=== PATIENT | female | born 1990 | race American Indian/Alaskan Native ===

== ENCOUNTER 2021-10-28 15:47 | Outpatient (CLI) | payer MEDICAID ==
[2021-10-28 18:06] VITALS: BP 117/75
[2021-10-28 18:55] LABS: Bilirubin,Urine NEG (Negative); Blood,Urine NEG (Negative); Color,Urine Straw (Yellow); Protein,Urine <15 mg/dL mg/dL (Negative); Urobilinogen,Urine < 2.0 mg/dL (<2.0)
[2021-10-28 18:56] LABS: RBC,Urine < 1.0 /HPF (0.0-6.0); WBC,Urine < 1.0 /HPF (0.0-6.0)
== END 2021-10-28 19:34 | disposition home or self-care (01) ==
LOC: TRG 15:47 → LD 15:48 → TRG 19:34
PROVIDERS: ATTEND Obstetrics & Gynecology
DX: O26.892 Other specified pregnancy related conditions, second trimester (principal); Z3A.23 23 weeks gestation of pregnancy
CPT/HCPCS: 81001

== ENCOUNTER 2021-11-28 21:53 | Outpatient (CLI) | payer MEDICAID ==
[2021-11-28] MEDS ORDERED: LACTATED RINGERS 500 ML IV ONE (22:29)
[2021-11-29 00:05] LABS: Bilirubin,Urine NEG (Negative); Blood,Urine NEG (Negative); Color,Urine Yellow (Yellow); Mucus,Urine 3+ /HPF
[2021-11-29 00:27] VITALS: BP 111/61
== END 2021-11-29 00:34 | disposition home or self-care (01) ==
LOC: TRG 21:53 → APU 21:55 → TRG 11-29 00:34
PROVIDERS: ATTEND Student in an Organized Health Care Education/Training Program
DX: O62.9 Abnormality of forces of labor, unspecified (principal); O99.513 Diseases of the respiratory system complicating pregnancy, third trimester; J45.909 Unspecified asthma, uncomplicated; Z3A.28 28 weeks gestation of pregnancy
CPT/HCPCS: 36415; 81001; 82731; 96360; J7120

== ENCOUNTER 2022-01-08 22:45 | Outpatient (CLI) | payer MEDICAID ==
[2022-01-08 23:49] VITALS: BP 118/74
[2022-01-09] MEDS ORDERED: LACTATED RINGERS 1,000 ML IV ONE (00:20)
[2022-01-09 00:30] LABS: Mucus,Urine FEW /HPF
[2022-01-09 00:31] LABS: Bilirubin,Urine Negative (Negative); Blood,Urine Negative (Negative); Color,Urine Yellow (Yellow)
--- NOTE | 2022-01-09 01:35 | Ultrasound Report ---
ULTRASOUND BIOPHYSICAL PROFILE INDICATION / CLINICAL INFORMATION: Well being. COMPARISON: None available. FINDINGS: BREATHING MOVEMENT = 2 GROSS BODY MOVEMENT = 2 TONE = 2 QUALITATIVE AMNIOTIC FLUID VOLUME = 2 TOTAL BIOPHYSICAL SCORE = 02/13 PRESENTATION: Cephalic. HEART RATE (beats per minute): 145 IMPRESSION: 1. biophysical profile = 02/13 Signer Name: Neo Diane MD Signed: 01/09/2022 1:30 AM Workstation Name: [id number]
== END 2022-01-09 02:31 | disposition home or self-care (01) ==
LOC: APU 22:45 → TRG 22:45
PROVIDERS: ATTEND Obstetrics & Gynecology
DX: O62.9 Abnormality of forces of labor, unspecified (principal); O99.513 Diseases of the respiratory system complicating pregnancy, third trimester; J45.909 Unspecified asthma, uncomplicated; O99.613 Diseases of the digestive system complicating pregnancy, third trimester; K21.9 Gastro-esophageal reflux disease without esophagitis; Z3A.34 34 weeks gestation of pregnancy
CPT/HCPCS: 76819; 81001; 96360; J7120

== ENCOUNTER 2022-01-31 17:10 | Inpatient (IN) | payer MEDICAID ==
[2022-01-31] MEDS ORDERED: LIDOCAINE (2%) 20 MG/1 ML VIAL 20 ML MDV INFILTRATI ONE (18:04)
[2022-01-31] MEDS ORDERED: fentaNYL 100 MCG/2 ML INJ IV PRN (18:04)
[2022-01-31] MEDS ORDERED: CARBOPROST TROMETHAMINE 250 MCG/1 ML INJ IM PRN (18:04)
[2022-01-31] MEDS ORDERED: BUTORPHANOL 2 MG/1 ML INJ IV PRN (18:04)
[2022-01-31] MEDS ORDERED: ePHEDrine SULFATE 50 MG/1 ML INJ IV PRN (18:04)
[2022-01-31] MEDS ORDERED: miSOPROStol 200 MCG TAB PR PRN (18:04)
[2022-01-31] MEDS ORDERED: TERBUTALINE 1 MG/1 ML INJ SUB-Q PRN (18:04)
[2022-01-31] MEDS ORDERED: OXYTOCIN 10 UNIT/1 ML INJ IM PRN (18:04)
[2022-01-31] MEDS ORDERED: ACETAMINOPHEN 325 MG TAB PO PRN (18:04)
[2022-01-31] MEDS ORDERED: LOPERAMIDE 2 MG CAP PO PRN (18:04)
[2022-01-31] MEDS ORDERED: METHYLERGONOVINE MALEATE 0.2 MG/ML VIAL IM PRN (18:04)
[2022-01-31] MEDS ORDERED: MINERAL OIL 30 ML ORAL LIQD PO PRN (18:04)
[2022-01-31] MEDS ORDERED: LACTATED RINGERS 1,000 ML IV SCH (18:15)
--- NOTE | 2022-01-31 18:22 | History and Physical Report ---
History of Present Illness Date of examination: 01/31/22 Date of admission: 01/31/2022 Chief complaint: 01/31/2022 History of present illness: Patient is a at 37w2d presenting s/p SROM. Patient notes she has been jono throughout the day and they have progressively instensified. Notes at 4 pm she felt a pop and began leaking fluid. Denies vaginal bleeding. 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 Family/Genetic History: none Social history: no significant social history - Obstetrical History Expected Date of Delivery: 02/19/22 Actual Gestation: 37 Week(s) 2 Day(s) : 5 Para: 3 Hx # Term Pregnancies: 3 Number of Pregnancies: 0 Spontaneous Abortions: 1 Induced : 0 Number of Living Children: 3 Medications and Allergies Allergies Allergy/AdvReac Type Severity Reaction Status Date / Time egg Allergy Mild Unknown Verified 11/28/21 22:13 milk Allergy Mild Unknown Verified 11/28/21 22:13 wheat Allergy Mild Unknown Verified 11/28/21 22:13 Home Medications Medication Instructions Recorded Confirmed Last Taken Type Albuterol Mdi (or & Nicu Only) 2 puff IH QID PRN #1 device 05/23/13 10/13/21 10/12/21 16:00 Rx [ProAir HFA Inhaler] Albuterol Sulfate [Proventil HFA] 2 puff INHALATION 4XD PRN 05/23/13 10/13/21 10/12/21 16:00 History Sertraline HCl [Zoloft] 1 tab PO DAILY 02/02/14 10/13/21 10/12/21 09:00 History ALBUTEROL NEB's [Proventil 0.083% 2.5 mg IH Q4HRT PRN nebu 10/14/21 Unknown Rx NEBS] Enoxaparin 80 mg SUB-Q Q12HR 30 Days syringe 10/14/21 Unknown Rx Famotidine [Pepcid] 10 mg PO BID tablet 10/14/21 Unknown Rx Magnesium Hydroxide [Milk of 30 ml PO Q4H PRN oral.liqd 10/14/21 Unknown Rx Magnesia] Vit-Fe Fumar-FA [ 1 each PO DAILY tablet 10/14/21 Unknown Rx Vitamin] Review of Systems All systems: negative Genitourinary: leakage of fluid, contractions - Physical Exam Abdomen: Positive: soft Genitourinary (Female): Positive: normal external genitalia - Obstetrical FHR: category 1 Cervical Dilatation: 5 Cervical Effacement Percentage: 80 station: -3 Results All other labs normal. 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
[2022-01-31] MEDS ORDERED: fentaNYL 100 MCG/2 ML INJ ONE (18:25)
[2022-01-31] MEDS ORDERED: OXYTOCIN DRIP 30 UNITS/500 ML BAG IV SCH ×2 (19:00)
[2022-01-31 19:12] LABS: Hematocrit 37.4 % (30.3-42.9); Hemoglobin 12.4 gm/dl (10.1-14.3)
--- NOTE | 2022-01-31 19:29 | Procedure Note ---
OB Delivery Note - Delivery Date of Delivery: 01/31/22 Surgeon: ADELAIDA KOCH Estimated blood loss: 100cc - Vaginal Delivery presentation: vertex Delivery position: OA Intrapartum events: prolonged latent phase Delivery induction: none Delivery monitor: external FHT Route of delivery: Delivery placenta: spontaneous Delivery cord: 3 umbilical vessels Episiotomy: none Delivery laceration: none Anesthesia: none Delivery comments: To patient triage room and informed patient complete. With good maternal pushing effort , 2275 g female delivered and handed to awaiting SINDY nurse. Placenta delivered and noted to be intact. Pitocin IM given as patient lost IV access. No lacerations noted. Mother and baby remain in triage room in stable condition. - A at 1 minute: 8 at 5 minutes: 9 Infant Gender: Female (2275g)
--- NOTE | 2022-01-31 19:58 | Event Note ---
Date: 01/31/22 (Elevated blood pressures) Some elevated blood pressures noted immediately after delivery (160's/80-90). Upon entering room, patient had her arm bent and was feeding the baby. She denied DOMINGUEZ, blurred vision, spots before her eyes, chest pain, shortness of breath, and upper abdominal pain. Last few blood pressures noted to be 140's/60's after assessment. Will order Pre-eclampsia labs and continue to monitor blood pressures.
[2022-01-31 20:32] LABS: Uric Acid 5.1 mg/dL (3.5-7.6)
[2022-01-31] MEDS ORDERED: HYDROcodone/ACETAMINOPHEN 5-325 MG TAB PO ONE (23:35)
[2022-02-01] MEDS ORDERED: BENZOCAINE/MENTHOL 20/0.5% TOP SPRAY 56 GM TP PRN (00:05)
[2022-02-01] MEDS ORDERED: WITCH HAZEL/ GLYCERIN PAD TP PRN (00:05)
[2022-02-01] MEDS ORDERED: MAGNESIUM HYDROXIDE (MOM) ORAL LIQD UDC PO PRN (00:05)
[2022-02-01] MEDS ORDERED: LANOLIN/ZINC/DIMETHICONE (LANSINOH) 7 GM TP PRN ×2 (00:05)
[2022-02-01] MEDS ORDERED: ONDANSETRON 4 MG/2 ML INJ IV PRN (00:05)
[2022-02-01] MEDS ORDERED: PROMETHAZINE 25 MG RECT SUPP PR PRN (00:05)
[2022-02-01] MEDS ORDERED: PROMETHAZINE 25 MG TAB PO PRN (00:05)
[2022-02-01] MEDS ORDERED: diphenhydrAMINE 25 MG CAP PO PRN (00:05)
[2022-02-01] MEDS: DOCUSATE SODIUM 100 MG CAP PO SCH ×4 (01:30→22:46)
[2022-02-01] MEDS: oxyCODONE /ACETAMINOPHEN 5-325MG TAB PO PRN ×3 (02:45→15:03)
[2022-02-01] MEDS ORDERED: TETANUS,DIPH,PERTUSS(ACELL) VACCINE 0.5 ML SYRINGE IM ONE (06:00)
--- NOTE | 2022-02-01 09:22 | Progress Note ---
Assessment and Plan - Patient Problems (1) Normal delivery at term Current Visit: Yes Status: Acute Plan to address problem: -routine pp care d/c home in the am (2) Pulmonary embolism affecting in third trimester Current Visit: Yes Status: Acute Plan to address problem: -restart lovenox and con't pp as per recommendations Subjective - Subjective Date of service: 02/01/22 Principal diagnosis: PPD #1 s/p precipitous NDVD Interval history: Pt doing well. pain is well controlled. Breast feeding Patient reports: appetite normal, voiding normally, pain well controlled Mousie: doing well, nursing well Objective - Vital Signs Latest vital signs: Vital Signs Temp Pulse Resp BP BP Pulse Ox 02/01/22 04:00 98.6 F 77 16 114/78 01/31/22 23:20 98.7 F 88 18 127/70 97 01/31/22 22:49 79 17 110/65 110/65 96 01/31/22 22:48 83 99 01/31/22 22:43 71 98 01/31/22 22:38 77 97 01/31/22 22:36 75 121/77 01/31/22 22:33 77 98 01/31/22 22:28 76 97 01/31/22 22:23 63 98 01/31/22 22:22 75 120/71 01/31/22 22:18 78 96 01/31/22 22:13 80 97 01/31/22 22:08 64 98 01/31/22 22:07 60 156/84 01/31/22 22:03 84 98 01/31/22 21:58 59 L 100 01/31/22 21:53 72 97 01/31/22 21:52 60 121/68 01/31/22 21:48 74 99 01/31/22 21:43 62 98 01/31/22 21:38 65 98 01/31/22 21:37 68 158/74 01/31/22 21:33 70 99 01/31/22 21:28 71 99 01/31/22 21:23 73 98 01/31/22 21:21 65 131/72 01/31/22 21:18 68 99 01/31/22 21:13 72 98 01/31/22 21:08 61 127/82 99 01/31/22 21:03 70 99 01/31/22 20:58 65 99 01/31/22 20:53 72 99 01/31/22 20:48 71 100 01/31/22 20:43 80 98 01/31/22 20:38 62 99 01/31/22 20:33 63 98 01/31/22 20:28 67 98 01/31/22 20:23 66 98 01/31/22 20:18 75 98 01/31/22 20:13 71 98 01/31/22 20:08 58 L 99 01/31/22 20:03 59 L 98 01/31/22 19:58 69 99 01/31/22 19:53 63 98 01/31/22 19:51 67 140/63 01/31/22 19:48 68 98 01/31/22 19:43 87 97 01/31/22 19:38 61 97 01/31/22 19:37 57 L 141/68 01/31/22 19:33 77 97 01/31/22 19:28 71 98 01/31/22 19:27 82 94 01/31/22 19:23 69 99 01/31/22 19:21 60 162/90 01/31/22 19:18 66 97 01/31/22 19:13 65 98 01/31/22 19:11 73 93 01/31/22 19:08 69 97 01/31/22 19:07 65 165/85 01/31/22 18:45 20 Intake and Output 01/31/22 02/01/22 02/01/22 22:59 06:59 14:59 Other: # Voids Void 2 Weight 87.09 kg Estimated Blood Loss 200 - Exam Breasts: Present: normal Cardiovascular: Present: Normal S1, Normal S2 Lungs: Present: Clear to auscultation, Normal air movement Abdomen: Present: normal appearance, soft. Absent: distention, tenderness, guarding Uterus: Present: normal, firm. Absent: bogginess, tenderness Extremities: Present: normal Deep Tendon Reflex Grade: Normal +2 - Labs Labs: Abnormal lab results 01/31/22 Range/Units 19:56 Lactate Dehydrogenase 209 H (91-180) units/L
[2022-02-01] MEDS: PRENATAL VIT27-FE FUMARATE-FOLIC ACID VIT TAB PO SCH (10:26)
[2022-02-01] MEDS: ENOXAPARIN 40 MG/0.4 ML INJ SUB-Q SCH (10:29)
[2022-02-01 11:39] LABS: Hematocrit 31.7 % (30.3-42.9); Hemoglobin 10.2 gm/dl (10.1-14.3)
[2022-02-01] MEDS: ACETAMINOPHEN 500 MG TAB PO PRN (18:18)
[2022-02-01] MEDS ORDERED: IBUPROFEN 800 MG TAB PO PRN (21:33)
[2022-02-01] MEDS ORDERED: oxyCODONE 5 MG TAB PO ONE (21:58)
--- NOTE | 2022-02-02 00:39 | Event Note ---
Date: 02/02/22 (Abdominal pain) Pt with severe abdominal pain. she does have a history of a hernia. Per patient she has been passing a little flatus. Also of note, patient states that she was constipated before delivery. Upon assessment, tender abdomen on palpation, mostly on the right side. Distention noted. Hypoactive bowel sounds. Consulted with Dr. Kendall, CT of the abdomen w/o contrast ordered. Dulcolax suppository ordered. RN taking care of patient aware.
[2022-02-02] MEDS: ACETAMINOPHEN 500 MG TAB PO PRN ×3 (01:07→14:21)
--- NOTE | 2022-02-02 01:54 | Cat Scan Report ---
CT ABDOMEN AND PELVIS WITH CONTRAST INDICATION / CLINICAL INFORMATION: Severe abdominal pain after vaginal delivery.. TECHNIQUE: Axial CT images were obtained through the abdomen and pelvis after IV contrast. All CT sc ans at this location are performed using CT dose reduction for ALARA by means of automated exposure c ontrol. COMPARISON: None available. FINDINGS: LOWER CHEST: No significant abnormality of the imaged chest. LIVER: No focal lesion. No acute findings. GALLBLADDER / BILE DUCTS: No significant abnormality. Biliary ducts grossly unremarkable. SPLEEN: No significant abnormality. PANCREAS: No significant abnormality. ADRENALS: No significant abnormality. KIDNEYS/URETERS: Nonobstructing nephrolith left kidney. Otherwise no urolithiasis. STOMACH / DUODENUM / SMALL BOWEL: The stomach, duodenum, and small bowel demonstrate no significant a bnormality. No specific abnormality of the mesentery demonstrated. COLON: No significant abnormality. APPENDIX: No significant abnormality. PERITONEUM: No free air or free fluid are present within the abdomen or pelvis. LYMPH NODES: No significant adenopathy. AORTA / ARTERIES: No significant abnormality. IVC / VEINS: No significant abnormality. URINARY BLADDER: No significant abnormality. REPRODUCTIVE ORGANS: The uterus is enlarged compatible with post-gravid state. The endometrial cavity however demonstrates a moderate to large amount of hyperattenuating fluid compatible with hemorrhage . SKELETAL SYSTEM: No significant abnormality. ADDITIONAL ABDOMINAL/PELVIC FINDINGS: None. IMPRESSION: 1. Large hemorrhage suggested within the endometrial cavity. Signer Name: Mayur Dominguez II, MD Signed: 02/02/2022 1:50 AM Workstation Name: [id number]
[2022-02-02] MEDS ORDERED: GABAPENTIN 300 MG CAP PO ONE (04:51)
[2022-02-02] MEDS ORDERED: TETANUS,DIPH,PERTUSS(ACELL) VACCINE 0.5 ML SYRINGE IM ONE (06:05)
--- NOTE | 2022-02-02 07:02 | Event Note ---
Date: 02/02/22 CT c/w likely immdiate post changes as far as clots being in the uterus. Pt h/h is stable and bleeding has not been c/w hemorrage. Vitals have also been stable and not c/o ongoing hemorhage. Will repeat h/h today and con't to closely monitor.
[2022-02-02 08:41] LABS: Hematocrit 33.2 % (30.3-42.9); Hemoglobin 11.3 gm/dl (10.1-14.3)
--- NOTE | 2022-02-02 09:46 | Progress Note ---
Assessment and Plan - Patient Problems (1) Pulmonary embolism affecting in third trimester Current Visit: Yes Status: Acute Plan to address problem: Patient to continue on Lovenox (2) Abdominal pain Current Visit: Yes Status: Acute Qualifiers: Abdominal location: right lower quadrant Qualified Code(s): R10.31 - Right lower quadrant pain Plan to address problem: s/p CT scan Findings c/w with changes postdelivery with blood noted in the uterus, Will re-evaluate H/H Encouraged to continue ambulation Will order abdominal binder Continue to monitor (3) Normal delivery at term Current Visit: Yes Status: Acute Plan to address problem: Routine care Will restart patient home meds per her request Subjective - Subjective Date of service: 02/02/22 Principal diagnosis: PPD #2 s/p precipitous NDVD Interval history: Patient complains of right sided abdominal pain. Notes it is better with movement and sitting up. Would like to review CT scan findings. Was told by nurse it appears to be changes related to delivery. Patient reports: appetite normal, voiding normally, ambulating normally, other (pain only somewhat controlled) : doing well Objective - Vital Signs Latest vital signs: Vital Signs Temp Pulse Resp BP Pulse Ox Pulse Ox 02/02/22 08:02 98.1 F 88 14 118/82 96 02/02/22 07:55 97 02/02/22 02:07 18 02/02/22 01:58 98.2 F 82 20 116/81 97 02/02/22 01:07 16 02/02/22 01:01 98.2 F 72 20 114/96 97 02/02/22 00:01 99 02/01/22 23:45 18 02/01/22 22:45 16 02/01/22 18:18 16 02/01/22 17:18 98.5 F 72 18 130/77 95 02/01/22 16:03 16 02/01/22 15:03 16 Intake and Output 02/01/22 02/02/22 02/02/22 23:59 07:59 15:59 Intake Total 1080 Balance 1080 Intake: Oral 480 Intake, Free Water 600 Other: Total, Intake Amount 480 # Voids Void 3 - Exam Abdomen: Present: normal appearance, soft, tenderness (tender near herniua site and on right) Vulva: both: normal Uterus: Present: firm Extremities: Present: normal
[2022-02-02] MEDS: DOCUSATE SODIUM 100 MG CAP PO SCH (10:33)
[2022-02-02] MEDS: ENOXAPARIN 40 MG/0.4 ML INJ SUB-Q SCH (10:33)
[2022-02-02] MEDS: PRENATAL VIT27-FE FUMARATE-FOLIC ACID VIT TAB PO SCH (10:33)
[2022-02-02] MEDS: PANTOPRAZOLE 40 MG TAB PO SCH (12:17)
[2022-02-02] MEDS: SERTRALINE 25 MG TAB PO SCH (12:17)
[2022-02-02] MEDS ORDERED: oxyCODONE /ACETAMINOPHEN 5-325MG TAB PO PRN (18:14)
[2022-02-02] MEDS ORDERED: oxyCODONE /ACETAMINOPHEN 5-325MG TAB PO ONE (19:00)
--- NOTE | 2022-02-02 19:05 | Event Note ---
Date: 02/02/22 To patient room for evaluation. Notes pain improved after receiving a Percocet. Minimal vaginal bleeding. Notes Tylenol alone not controlling pain. Discussed with try Tylenol #3 per her request. Orders in system.
[2022-02-03] MEDS: ACETAMINOPHEN W/CODEINE 300-30 MG TAB PO PRN ×3 (00:33→12:51)
[2022-02-03] MEDS: DOCUSATE SODIUM 100 MG CAP PO SCH ×2 (00:33→10:15)
--- NOTE | 2022-02-03 06:07 | Discharge Summary ---
Providers - Providers Date of Admission: 01/31/22 18:04 Date of discharge: 02/03/22 Attending physician: LUISITO VASQUEZ Primary care physician: LUISITO VASQUEZ Hospitalization Reason for admission: active labor Delivery: Episiotomy: none Laceration: none Other procedures: none complications: other (abnormal abdominal pain after delivery.) Pertinent studies: Pt had severe abdominal pain after delivery. Today on discharge she is feeling much better and desires to go home. She had a CT scan which showed normal uterine changes after delivery and no significant abnormalities. Hospital course: S: Pt doing well. Ambulating, voiding, and passing flatus okay. BC: Undecided. O: VSS. H/H 11.3/33.2. Fundus firm, minimal bleeding noted. A: 31 y.o. s/p . In good condition . P: Discharge home with instructions. Pt to schedule visit in the office in 4 weeks. Condition at discharge: Good Disposition: 01 HOME / SELF CARE / HOMELESS Plan - Provider Discharge Summary Activity: routine, no sex for 6 weeks, no heavy lifting 4 weeks, no strenuous exercise Diet: routine Instructions: routine Additional instructions: [] Smoking cessation referral if applicable(refer to patient education folder for contact #) [] Refer to [facility] Booklet Call your doctor immediately for: * Fever > 100.5 * Heavy vaginal bleeding ( >1 pad per hour) * Severe persistent headache * Shortness of breath * Reddened, hot, painful area to leg or breast - Follow up plan Follow up: LUISITO VASQUEZ MD [Primary Care Provider] - 7 Days (- Congratulations on the of your baby girl! - Thank you for allowing us to take care of you. - Please scheduled your visit in the office in 4 weeks. - Should you have any questions or concerns after discharge, please do not hesitate to call us at . )
[2022-02-03] MEDS: PANTOPRAZOLE 40 MG TAB PO SCH (07:47)
[2022-02-03] MEDS: PRENATAL VIT27-FE FUMARATE-FOLIC ACID VIT TAB PO SCH (10:15)
[2022-02-03] MEDS: ENOXAPARIN 40 MG/0.4 ML INJ SUB-Q SCH (10:15)
[2022-02-03] MEDS: SERTRALINE 25 MG TAB PO SCH (11:19)
[2022-02-03 17:09] LABS: Alanine Aminotransferase 27 units/L (7-56); Uric Acid 5.3 mg/dL (3.5-7.6)
--- NOTE | 2022-02-03 20:02 | Event Note ---
Date: 02/03/22 s/w SHAMIKA Moctezuma who stated BP was <140/90, instrd to allow home, informed patient has an appt scheduled 02/07/2022 [place] office at 1430.BP cuff called to the pharmacy in patient's office EMR, she should chk her BP's bid, call office if 140/90 or > or s/s preeclampsia.
[2022-02-03 22:08] VITALS: BP 136/88
== END 2022-02-03 21:30 | disposition home or self-care (01) | DRG 774 ==
LOC: TRG 17:10 → APU 17:11 → TRG 18:25 → OB 23:22
PROVIDERS: ADMIT Obstetrics & Gynecology; ATTEND Obstetrics & Gynecology
PROC: 10E0XZZ Delivery of Products of Conception, External Approach (ICD-10-PCS; principal; 2022-01-31)
PROC: 3E0234Z Introduction of Serum, Toxoid and Vaccine into Muscle, Percutaneous Approach (ICD-10-PCS; 2022-02-02)
DX: O63.9 Long labor, unspecified (principal); O88.22 Thromboembolism in childbirth; Z3A.37 37 weeks gestation of pregnancy; Z37.0 Single live birth; Z20.822 Contact with and (suspected) exposure to COVID-19; Z23 Encounter for immunization
CPT/HCPCS: 36415; 59025; 74150; 76815; 76819; 81001; 82565; 82570; 83615; 84156; 84450; 84460; 84550; 85014; 85018; 85027; 85049; 86592; 86850; 86900; 86901; 90715; 96360; 96372; G0378; J0595; J1650; J2405; J2590; J3010; J3410; J7120; Q0177; U0003

== ENCOUNTER 2022-02-06 18:27 | Inpatient (IN) | payer MEDICAID ==
[2022-02-06 19:28] LABS: Hematocrit 36.4 % (30.3-42.9); Hemoglobin 11.4 gm/dl (10.1-14.3); Mean Corpuscular HGB Conc 32 % (30-34); Mean Corpuscular Volume 90 fl (79-97); Platelet Count 333 K/mm3 (140-440); Red Blood Count 4.04 M/mm3 (3.65-5.03)
[2022-02-06 19:38] LABS: Alanine Aminotransferase 33 units/L (7-56); Albumin 3.9 g/dL (3.9-5); BUN/Creatinine Ratio 14; Blood Urea Nitrogen 11 mg/dL (7-17); Calcium 9.6 mg/dL (8.4-10.2); Hemolysis Index 6
[2022-02-06 19:39] LABS: Red Cell Distribution Width 25.7 % (13.2-15.2)
[2022-02-06 20:20] LABS: Total Cells Counted 100
[2022-02-06 20:21] LABS: Anisocytosis 1+; Basophils % (Manual) 0 % (0.0-1.8); Hypochromasia Rare
[2022-02-07 00:16] LABS: Mucus,Urine 3+ /HPF
[2022-02-07 00:27] LABS: Bilirubin,Urine Negative (Negative); Color,Urine Yellow (Yellow)
[2022-02-07 00:28] LABS: Blood,Urine Trace (Negative); Protein,Urine <15 mg/dL mg/dL (Negative); Urobilinogen,Urine < 2.0 mg/dL (<2.0)
[2022-02-07] MEDS ORDERED: ACETAMINOPHEN 500 MG TAB PO ONE (01:43)
--- NOTE | 2022-02-07 02:49 | Emergency Department Report ---
ED General Adult HPI - General Chief complaint: High BP Stated complaint: HBP X3DAYS Source: patient Mode of arrival: Ambulatory Limitations: No Limitations - History of Present Illness Initial comments: Patient is A0 31-year-old -Slov[place] female who is about 7 days po stpartum presents to the ED with complaint of persistently elevated blood pressure for the last 1 week. Patient states that her blood pressure was elevated prior to being discharged from the hospital but she was discharged home and advised to return to the ED if her blood pressure is persistently elevated. Patient states that prior to arrival in the ED her blood pressure was 171/101. Patient also complains of persistent headache with elevated blood pressure. Patient denies dizziness, syncope, abdominal pain, nausea and vomiting, vaginal discharge, fever and chills, dysuria, urinary frequency and urgency, low back pain, chest pain or shortness of breath. MD Complaint: Elevated BP, patient is 7 days post- -: Sudden, days(s) (7) Location: head Radiation: non-radiation Severity scale (0 -10): 4 Quality: aching, sharp Consistency: constant Improves with: none Worsens with: none Associated Symptoms: denies other symptoms, headaches. denies: chest pain, cough, diaphoresis, fever/chills, loss of appetite, malaise, nausea/vomiting, rash, seizure, shortness of breath, syncope, weakness Treatments Prior to Arrival: none - Related Data Home Medications Medication Instructions Recorded Confirmed Last Taken Albuterol Sulfate [Proventil HFA] 2 puff INHALATION 4XD PRN 05/23/13 10/13/21 10/12/21 16:00 Sertraline HCl [Zoloft] 1 tab PO DAILY 02/02/14 10/13/21 10/12/21 09:00 Previous Rx's Medication Instructions Recorded Last Taken Type Albuterol Mdi (or & Nicu Only) 2 puff IH QID PRN #1 device 05/23/13 10/12/21 16:00 Rx [ProAir HFA Inhaler] ALBUTEROL NEB's [Proventil 0.083% 2.5 mg IH Q4HRT PRN nebu 10/14/21 Unknown Rx NEBS] Enoxaparin 80 mg SUB-Q Q12HR 30 Days syringe 10/14/21 Unknown Rx Famotidine [Pepcid] 10 mg PO BID tablet 10/14/21 Unknown Rx Magnesium Hydroxide [Milk of 30 ml PO Q4H PRN oral.liqd 10/14/21 Unknown Rx Magnesia] Vit-Fe Fumar-FA [ 1 each PO DAILY tablet 10/14/21 Unknown Rx Vitamin] Allergies Allergy/AdvReac Type Severity Reaction Status Date / Time egg Allergy Mild Unknown Verified 11/28/21 22:13 milk Allergy Mild Unknown Verified 11/28/21 22:13 wheat Allergy Mild Unknown Verified 11/28/21 22:13 ED Review of Systems ROS: Stated complaint: HBP X3DAYS Other details as noted in HPI Constitutional: other (Elevated blood pressure). denies: chills, fever Eyes: denies: eye pain, eye discharge, vision change ENT: denies: ear pain, throat pain Respiratory: denies: cough, shortness of breath, wheezing Cardiovascular: denies: chest pain, palpitations Endocrine: no symptoms reported Gastrointestinal: denies: abdominal pain, nausea, vomiting, diarrhea Genitourinary: denies: urgency, dysuria, discharge Musculoskeletal: denies: back pain, joint swelling, arthralgia Skin: denies: rash, lesions Neurological: headache. denies: weakness, paresthesias Psychiatric: denies: anxiety, depression Hematological/Lymphatic: denies: easy bleeding, easy bruising ED Past Medical Hx - Past Medical History Hx Hypertension: No Hx Heart Attack/AMI: No Hx Congestive Heart Failure: No Hx Diabetes: No Hx Deep Vein Thrombosis: No Hx Pulmonary Embolism: Yes (10/12/2021 currently on lovenox) Hx Renal Disease: No Hx Sickle Cell Disease: No Hx Seizures: No Hx Asthma: Yes (when younger, last known when 7) Hx COPD: No Hx HIV: No Additional medical history: anemia recti diastasis - Surgical History Additional Surgical History: Umbilical hernia repair 04/2009 - Social History Smoking Status: Never Smoker - Medications Home Medications: Home Medications Medication Instructions Recorded Confirmed Last Taken Type Albuterol Mdi (or & Nicu Only) 2 puff IH QID PRN #1 device 05/23/13 10/13/21 10/12/21 16:00 Rx [ProAir HFA Inhaler] Albuterol Sulfate [Proventil HFA] 2 puff INHALATION 4XD PRN 05/23/13 10/13/21 10/12/21 16:00 History Sertraline HCl [Zoloft] 1 tab PO DAILY 02/02/14 10/13/21 10/12/21 09:00 History ALBUTEROL NEB's [Proventil 0.083% 2.5 mg IH Q4HRT PRN nebu 10/14/21 Unknown Rx NEBS] Enoxaparin 80 mg SUB-Q Q12HR 30 Days syringe 10/14/21 Unknown Rx Famotidine [Pepcid] 10 mg PO BID tablet 10/14/21 Unknown Rx Magnesium Hydroxide [Milk of 30 ml PO Q4H PRN oral.liqd 10/14/21 Unknown Rx Magnesia] Vit-Fe Fumar-FA [ 1 each PO DAILY tablet 10/14/21 Unknown Rx Vitamin] ED Physical Exam - General Limitations: No Limitations General appearance: alert, in no apparent distress - Head Head exam: Present: atraumatic, normocephalic, normal inspection - Eye Eye exam: Present: normal appearance, PERRL, EOMI Pupils: Present: normal accommodation - ENT ENT exam: Present: normal exam, normal orophraynx, mucous membranes moist, TM's normal bilaterally, normal external ear exam - Neck Neck exam: Present: normal inspection, full ROM. Absent: tenderness - Respiratory Respiratory exam: Present: normal lung sounds bilaterally. Absent: respiratory distress, wheezes, rales, rhonchi, chest wall tenderness, accessory muscle use, decreased breath sounds, prolonged expiratory - Cardiovascular Cardiovascular Exam: Present: regular rate, normal rhythm, normal heart sounds. Absent: systolic murmur, diastolic murmur, rubs, gallop - GI/Abdominal GI/Abdominal exam: Present: soft, normal bowel sounds. Absent: tenderness, guarding, rebound, hyperactive bowel sounds, hypoactive bowel sounds, organomegaly, mass, bruit - Extremities Exam Extremities exam: Present: normal inspection, full ROM, normal capillary refill. Absent: tenderness - Back Exam Back exam: Present: normal inspection, full ROM. Absent: tenderness, CVA tenderness (R), CVA tenderness (L), muscle spasm, paraspinal tenderness, vertebral tenderness - Neurological Exam Neurological exam: Present: alert, oriented X3, CN II-XII intact, normal gait, reflexes normal - Psychiatric Psychiatric exam: Present: normal affect, normal mood - Skin Skin exam: Present: warm, dry, intact, normal color. Absent: rash ED Course Vital Signs 02/06/22 02/07/22 02/07/22 18:44 00:09 02:36 Temperature 97.9 F Pulse Rate 81 76 72 Respiratory 15 18 Rate Blood Pressure 158/84 Blood Pressure 150/97 152/84 [Right] O2 Sat by Pulse 97 99 Oximetry - Reevaluation(s) Reevaluation #1: 02/07/22 02:51 I paged and discussed the patient's case with the midlevel provider Ms. Wright for Dr. Kendall the patient's [employer] physician. The midlevel provider Ms. Wright stated that Dr. Kendall preferred to admit the patient to the hospital for observation and for magnesium infusion. Subsequently the patient was therefore admitted to the hospital by Dr. Kendall for further evaluation. ED Medical Decision Making - Lab Data Result diagrams: 02/06/22 19:04 02/06/22 19:04 - Medical Decision Making This is A0 31-year-old -Slov[place] female who is about 7 days presents to the ED with complaint of persistently elevated blood pressure for the last 1 week. Patient states that her blood pressure was elevated prior to being discharged from the hospital but she was discharged home and advised to return to the ED if her blood pressure is persistently elevated. Patient states that prior to arrival in the ED her blood pressure was 171/101. Patient also complains of persistent headache with elevated blood pressure. In the ED, patient is alert and oriented x3 and is not in distress but hypertensive in triage. Lab test results were reviewed and are all nonactionable. Patient was treated for hypertension with labetalol 100 mg p.o. x1 and was given Tylenol for pain. Patient's [employer] physician Dr. Kendall the patient's [employer] physician was paged and she admitted the patient to the hospital for further evaluation. - Differential Diagnosis Preeclampsia; eclampsia; tension headache; uncontrolled hypertension Critical care attestation.: If time is entered above; I have spent that time in minutes in the direct care of this critically ill patient, excluding procedure time. ED Disposition Clinical Impression: Preeclampsia in period, Uncontrolled stage 2 hypertension Tension type headache Qualifiers: Headache chronicity pattern: acute headache Intractability: not intractable Qualified Code(s): G44.209 - Tension-type headache, unspecified, not intractable Disposition: 02 SHORT TERM HOSPITAL Is pt being admited?: Yes Does the pt Need Aspirin: No Condition: Stable Instructions: Hypertension (ED) Referrals: KAYLA RICO MD [Primary Care Provider] - 3-5 Days Time of Disposition: 02:50 Print Language: BRAZILIAN
[2022-02-07] MEDS ORDERED: ONDANSETRON 4 MG/2 ML INJ IV PRN (02:54)
[2022-02-07] MEDS ORDERED: ACETAMINOPHEN 325 MG TAB PO PRN (02:54)
[2022-02-07] MEDS ORDERED: MORPHINE 2 MG/1 ML INJ IV PRN (02:54)
[2022-02-07] MEDS ORDERED: MAGNESIUM SULFATE 4 GM/100 ML BAG IV ONE ×2 (03:24→09:13)
[2022-02-07] MEDS ORDERED: CALCIUM GLUCONATE 1000 MG/10 ML INJ IV ONE (03:24)
[2022-02-07] MEDS ORDERED: MAGNESIUM HYDROXIDE (MOM) ORAL LIQD UDC PO PRN (03:31)
[2022-02-07] MEDS ORDERED: ALUM-MAG HYDROXIDE-SIMETHICONE 200-200-20MG/5ML ORAL LIQD 30 ML PO PRN (03:31)
[2022-02-07] MEDS ORDERED: SIMETHICONE 80 MG CHEW TAB PO PRN (03:31)
[2022-02-07] MEDS ORDERED: DOCUSATE SODIUM 100 MG CAP PO PRN (03:31)
--- NOTE | 2022-02-07 04:01 | History and Physical Report ---
History of Present Illness Date of examination: 02/07/22 Date of admission: 02/07/22 03:24 Chief complaint: My blood pressures were high at home and I have a dull headache. History of present illness: Pt is a who delivered vaginal 7 days ago. She presented to the ER d/t elevated blood pressures at home and a dull headache. Her blood pressures in the ER were found to be 150's/80-90's. She will be admitted to labor and delivery for magnesium infusion, blood pressure medication, and monitoring for worsening s/sx of Pre-eclampsia. Also of note, patient was diagnosed with a PE during and has been on Lovenox. Past History : 5 Term Births: 4 Premature Births: 0 Living Children: 4 Para: 4 Mult. Births: 0 Prev : 0 Aborta: 1 Elect. Ab: 0 Spont. Ab: 1 Ectopics: 0 # 1 Delivery date: 01/2007 Weeks Gestation: term Delivery type: Anesthesia type: epidural Delivery location: [facility] Infant Sex: Male weight: 6-1 Comments: IOL # 2 Delivery date: 01/2009 Weeks Gestation: term Delivery type: Anesthesia type: epidural Delivery location: [facility] Infant Sex: Female weight: 6-15 Comments: IOL # 3 Delivery date: 05/23/2014 Weeks Gestation: 40 Delivery type: Vaginal Anesthesia type: epidural Delivery location: [facility] Infant Sex: male weight: 7.81 Comments: none # 4 Delivery date: 2019 Weeks Gestation: Early? Delivery type: SAB Comments: No complications # 5 Delivery date: 2021 Week Gestation: 37+ Delivery type: Comments: Diagnosed with PE and on Lovenox during preg arpit Past Medical History: Reviewed history from 11/28/2019 and no changes required: Asthma G E R D HSV 1 Past Surgical History: Reviewed and updated today: Surgical removal of IUD in 2019. Social History: Patient is Smoking History: Patient has never smoked. 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 % Sun Exposure: rarely No Dietary Counseling Reason: pn yes Past Medical History Anesthesia Complications: negative Anemia: negative Autoimmune Disorder: negative Bleeding Disorder: negative Blood Transfusions: negative Breast Disease: negative Diabetes: negative Heart Disease: negative Hypertension: negative Hepatitis/Liver Disease: negative Kidney Disease/UTI: negative Neurologic/Epilepsy/Migraines: negative Phlebitis/Varicosities: negative Psychiatric: negative Pulmonary Disease/Asthma: negative Thyroid Disease: negative Hospitalizations: negative 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 Abnormal PAP: negative JU Exposure: negative Infertility: negative Uterine Anomaly: negative Uterine Surgery (not C/S): negative Other Gynecologic Problems: negative Social Hx: Patient is Smoking History: Patient has never smoked. Infection History Hx of STD: gonorrhea HIV Risk Eval: no Hepatitis B Risk Eval: low risk Personal hx. of genital herpes: no Partner hx. of genital herpes: no Rash, Viral, or Febrile illness since last LMP? no Varicella/Chicken Pox Status: Previous Disease TB Risk: no Infection History Comments: HSV 1 Genetic History Congenital Heart Defect: Mom: no Dad: no Humberto Disease: Mom: no Dad: no Thalassemia Mom: no Dad: no Neural Tube Defect Mom: no Dad: no Down's Syndrome Mom: no Dad: no Eduardo-Sachs Mom: no Dad: no Sickle Cell Disease/Trait Mom: no Dad: no Hemophilia Mom: no Dad: no Muscular Dystrophy Mom: no Dad: no Cystic Fibrosis Mom: no Dad: no Mateo Chorea Mom: no Dad: no Mental Retardation Mom: no Dad: no Fragile X Mom: no Dad: no Other Genetic/Chromosomal Disorder Mom: no Dad: no Child w/other defect Mom: no Dad: no Enviromental Exposures Xray Exposure: no Medication, drug, or alcohol use since LMP: no Chemical/Other Exposure: no Exposure to Cat Liter: yes Occupational Exposure to Children: none Active Medications (reviewed today): PNV () ZYRTEC () Current Allergies (reviewed today): No known allergies Laboratory Results Past History Past Medical History: asthma, vascular disease (PE), GERD Past Surgical History: other (Surgical removal of IUD in 2019.) 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) Family/Genetic History: none Social history: no significant social history - Obstetrical History : 5 Para: 4 Hx # Term Pregnancies: 4 Number of Pregnancies: 0 Spontaneous Abortions: 1 Induced : 0 Number of Living Children: 4 Medications and Allergies Allergies Allergy/AdvReac Type Severity Reaction Status Date / Time egg Allergy Mild Unknown Verified 11/28/21 22:13 milk Allergy Mild Unknown Verified 11/28/21 22:13 wheat Allergy Mild Unknown Verified 11/28/21 22:13 Home Medications Medication Instructions Recorded Confirmed Last Taken Type Albuterol Mdi (or & Nicu Only) 2 puff IH QID PRN #1 device 05/23/13 10/13/21 10/12/21 16:00 Rx [ProAir HFA Inhaler] Albuterol Sulfate [Proventil HFA] 2 puff INHALATION 4XD PRN 05/23/13 10/13/21 10/12/21 16:00 History Sertraline HCl [Zoloft] 1 tab PO DAILY 02/02/14 10/13/21 10/12/21 09:00 History ALBUTEROL NEB's [Proventil 0.083% 2.5 mg IH Q4HRT PRN nebu 10/14/21 Unknown Rx NEBS] Enoxaparin 80 mg SUB-Q Q12HR 30 Days syringe 10/14/21 Unknown Rx Famotidine [Pepcid] 10 mg PO BID tablet 10/14/21 Unknown Rx Magnesium Hydroxide [Milk of 30 ml PO Q4H PRN oral.liqd 10/14/21 Unknown Rx Magnesia] Vit-Fe Fumar-FA [ 1 each PO DAILY tablet 10/14/21 Unknown Rx Vitamin] Active Meds: Active Medications Acetaminophen (Acetaminophen 500 Mg Tab) 1,000 mg PO Q6H PRN PRN Reason: Pain MILD(1-3)/Fever >100.5/DOMINGUEZ Al Hydrox/Mg Hydrox/Simethicone (Alum-Mag Hydroxide-Simethicone [phone]/5ml Oral Liqd 30 Ml) 30 ml PO Q6H PRN PRN Reason: Indigestion Docusate Sodium (Docusate Sodium 100 Mg Cap) 100 mg PO Q12H PRN PRN Reason: Constipation Enoxaparin Sodium (Enoxaparin 80 Mg/0.8 Ml Inj) 40 mg SUB-Q QDAY KAYLEE; Protocol Lactated Ringer's (Lactated Ringers) 1,000 mls @ 75 mls/hr IV DIRECT KAYLEE Magnesium Sulfate (Magnesium Sulfate 40gm/1000ml) 40 gm in 1,000 mls @ 50 mls/hr IV DIRECT KAYLEE Labetalol HCl (Labetalol 200 Mg Tab) 200 mg PO BID [facility] Magnesium Hydroxide (Magnesium Hydroxide (Mom) Oral Liqd Udc) 30 ml PO QHS PRN PRN Reason: Laxative Effect Morphine Sulfate (Morphine 2 Mg/1 Ml Inj) 2 mg IV Q4H PRN PRN Reason: Pain, Moderate (4-6) Multivitamins/Iron/Calcium ( [id number]-Aq Fumarate-Folic Acid Vit Tab) 1 each PO QDAY [facility] Ondansetron HCl (Ondansetron 4 Mg/2 Ml Inj) 4 mg IV Q8H PRN PRN Reason: Nausea And Vomiting Simethicone (Simethicone 80 Mg Chew Tab) 80 mg PO Q6H PRN PRN Reason: Gas pain Sodium Chloride (Sodium Chloride 0.9% 10 Ml Flush Syringe) 10 ml IV PRN PRN PRN Reason: LINE FLUSH Review of Systems All systems: negative Neurological: headaches - Vital Signs Vital signs: Vital Signs Temp Pulse Resp BP Pulse Ox 97.9 F 81 15 150/97 97 02/06/22 18:44 02/06/22 18:44 02/06/22 18:44 02/06/22 18:44 02/06/22 18:44 Temp Pulse Resp BP Pulse Ox 97.9 F 72 18 158/84 99 02/06/22 18:44 02/07/22 02:36 02/07/22 00:09 02/07/22 02:36 02/07/22 00:09 Pt denies blurred vision, spots before her eyes, chest pain, upper abdominal pain. She endorses a dull headache. - Physical Exam Breasts: Positive: deferred Cardiovascular: Normal S1, Normal S2 Lungs: Positive: Clear to auscultation Abdomen: Positive: normal appearance, soft Extremities: Positive: edema (+1 edema) Deep Tendon Reflex Grade: Normal +2 Results Result Diagrams: 02/06/22 19:04 02/06/22 19:04 Abnormal lab results 02/06/22 Range/Units 19:04 RDW 25.7 H (13.2-15.2) % Seg Neuts % (Manual) 71.0 H (40.0-70.0) % All other labs normal. Pre-eclampsia labs drawn on admission. Assessment and Plan A: 31 y.o. s/o , day # 7, Pre-eclampsia. Hx of PE. - Patient Problems (1) Preeclampsia in period Current Visit: Yes Status: Acute Plan to address problem: Admit to labor and delivery. Pre-eclampsia labs drawn in ED. IV initiate in ED. Magnesium infusion - 4 gm bolus - 2 gm/hr Magnesium levels q 6 hrs. Strict I&O's - Burnett catheter placement Labetalol 200mg BID started. Monitor blood pressures. Monitor for worsening s/sx of pre-eclampsia. (2) History of pulmonary embolus (PE) Current Visit: Yes Status: Acute Plan to address problem: Lovenox ordered while admitted.
[2022-02-07] MEDS: LACTATED RINGERS 1,000 ML IV SCH ×2 (10:55→22:05)
[2022-02-07] MEDS: MAGNESIUM SULFATE 40GM/1000ML 40 GM/1,000 ML BAG IV SCH (10:56)
[2022-02-07] MEDS: SERTRALINE 25 MG TAB PO SCH (16:19)
[2022-02-07] MEDS: PANTOPRAZOLE 20 MG TAB PO SCH (16:19)
[2022-02-07] MEDS: ACETAMINOPHEN 500 MG TAB PO PRN (18:13)
[2022-02-07] MEDS: ENOXAPARIN 40 MG/0.4 ML INJ SUB-Q SCH (19:08)
--- NOTE | 2022-02-07 20:31 | Event Note ---
Date: 02/07/22 Pt w/o complaints; reviewed b/p's - well controlled on labetalol 200mg PO BID. Plan to continue mag sulfate x 24hrs, then d/c and continue with labetalol.
[2022-02-08] MEDS: ACETAMINOPHEN 500 MG TAB PO PRN ×3 (00:18→21:55)
[2022-02-08] MEDS ORDERED: IBUPROFEN 800 MG TAB PO PRN (01:34)
[2022-02-08] MEDS ORDERED: BUTALB/ACETAMINOPHEN/CAFFEINE TAB PO ONE (04:37)
[2022-02-08] MEDS: MAGNESIUM SULFATE 40GM/1000ML 40 GM/1,000 ML BAG IV SCH (07:00)
[2022-02-08] MEDS: PANTOPRAZOLE 20 MG TAB PO SCH (07:52)
--- NOTE | 2022-02-08 08:04 | Progress Note ---
<LUZ VASQUEZ - Last Filed: 02/08/22 08:00> Assessment and Plan A: 31 y.o. s/o , day #8 , Pre-eclampsia. Hx of PE. - Patient Problems (1) Preeclampsia in period Current Visit: Yes Status: Acute Plan to address problem: Magnesium infusion - 2 gm/hr d/t be turned off at 1050pm. Magnesium levels q 6 hrs. Strict I&O's - Burnett catheter placement Labetalol 200mg BID started. Monitor blood pressures. Monitor for worsening s/sx of pre-eclampsia. (2) History of pulmonary embolus (PE) Current Visit: Yes Status: Acute Plan to address problem: Lovenox ordered while admitted. Subjective - Subjective Date of service: 02/08/22 Interval history: Pt resting in bed, denies difficulty breathing or chest pain. Reports H/A, states may be due to caffeine in fioricet will order new med for H/A. BP controlled with labetalol 200mg BID. Patient reports: appetite normal, voiding normally : doing well Objective - Vital Signs Latest vital signs: Vital Signs Temp Pulse Resp BP Pulse Ox 02/08/22 07:30 80 142/82 02/08/22 07:00 82 134/84 02/08/22 06:00 86 118/70 02/08/22 04:54 98.2 F 18 97 02/08/22 04:27 94 H 128/82 02/08/22 03:21 84 136/78 02/08/22 02:51 78 123/74 02/08/22 02:21 80 127/77 02/08/22 01:51 76 113/60 02/08/22 01:19 71 144/90 02/08/22 01:18 98.1 F 18 97 02/08/22 01:09 76 156/100 02/08/22 00:38 68 133/87 02/08/22 00:07 71 111/69 02/07/22 23:18 82 114/81 02/07/22 22:07 98.2 F 18 100 02/07/22 22:03 88 122/75 02/07/22 21:48 88 122/75 02/07/22 21:18 85 123/69 02/07/22 20:48 86 110/64 02/07/22 20:18 77 98/58 02/07/22 19:48 71 99/63 02/07/22 19:19 88 110/69 02/07/22 19:03 94 H 100/58 02/07/22 19:00 97.5 F L 18 100 02/07/22 17:49 93 H 118/72 02/07/22 17:18 100 H 119/81 02/07/22 16:48 92 H 115/81 02/07/22 16:18 81 120/74 02/07/22 15:48 74 139/71 02/07/22 15:18 86 132/66 02/07/22 14:48 74 105/66 02/07/22 14:18 63 101/66 02/07/22 13:48 66 123/70 02/07/22 13:18 82 128/76 02/07/22 12:18 64 122/82 02/07/22 12:03 73 120/75 02/07/22 11:48 74 124/80 02/07/22 11:33 63 118/62 02/07/22 11:19 65 122/81 02/07/22 11:03 62 123/79 02/07/22 10:59 65 118/74 02/07/22 09:29 80 130/77 Intake and Output 02/07/22 02/08/22 02/08/22 22:59 06:59 14:59 Intake Total 1137.5 1000 Output Total 1600 900 Balance -462.5 100 Intake: IV 837.5 1000 Lactated Ringers 1,000 ml 837.5 @ 75 mls/hr IV DIRECT KAYLEE Rx#:[id number] MAGNESIUM SULFATE 40GM/ 1000 1000ML 40 gm In 1,000 ml @ 2 GM/HR 50 mls/hr IV DIRECT KAYLEE Rx#:[id number] Oral 300 Output: Urine 1600 900 Indwelling Catheter 1600 900 Other: Total, Intake Amount 300 Total, Output Amount 150 250 - Exam Breasts: Present: normal Lungs: Present: Clear to auscultation, Normal air movement Abdomen: Present: normal appearance, soft Uterus: Present: normal Extremities: Present: normal Deep Tendon Reflex Grade: Normal +2 - Labs Labs: Abnormal lab results 02/07/22 02/08/22 02/08/22 Range/Units 18:18 00:21 05:59 Magnesium 6.10 H 6.70 H 7.00 H (1.7-2.3) mg/dL <RISA WILLOUGHBY - Last Filed: 02/08/22 17:39> Assessment and Plan - Patient Problems (1) Tension type headache Current Visit: Yes Status: Acute Qualifiers: Headache chronicity pattern: acute headache Intractability: not intractable Qualified Code(s): G44.209 - Tension-type headache, unspecified, not intractable Plan to address problem: Pitocin to end 158 AM Objective - Vital Signs Latest vital signs: Vital Signs Temp Pulse Resp BP BP Pulse Ox 02/08/22 17:38 98.3 F 02/08/22 16:33 98.2 F 71 20 124/70 100 02/08/22 13:30 83 18 121/79 96 02/08/22 11:00 79 135/86 02/08/22 10:30 87 136/82 02/08/22 10:25 80 119/75 02/08/22 10:00 80 119/75 02/08/22 09:30 92 H 133/76 02/08/22 09:00 77 147/87 02/08/22 08:30 66 128/77 02/08/22 08:00 67 153/90 02/08/22 07:30 80 142/82 02/08/22 07:00 82 134/84 02/08/22 06:00 86 118/70 02/08/22 04:54 98.2 F 18 97 02/08/22 04:27 94 H 128/82 02/08/22 03:21 84 136/78 02/08/22 02:51 78 123/74 02/08/22 02:21 80 127/77 02/08/22 01:51 76 113/60 02/08/22 01:19 71 144/90 02/08/22 01:18 98.1 F 18 97 02/08/22 01:09 76 156/100 02/08/22 00:38 68 133/87 02/08/22 00:07 71 111/69 02/07/22 23:18 82 114/81 02/07/22 22:07 98.2 F 18 100 02/07/22 22:03 88 122/75 02/07/22 21:48 88 122/75 02/07/22 21:18 85 123/69 02/07/22 20:48 86 110/64 02/07/22 20:18 77 98/58 02/07/22 19:48 71 99/63 02/07/22 19:19 88 110/69 02/07/22 19:03 94 H 100/58 02/07/22 19:00 97.5 F L 18 100 02/07/22 17:49 93 H 118/72 Intake and Output 02/08/22 02/08/22 02/08/22 06:59 14:59 22:59 Intake Total 1000 1280 600 Output Total 900 1000 Balance 100 280 600 Intake: IV 1000 MAGNESIUM SULFATE 40GM/ 1000 1000ML 40 gm In 1,000 ml @ 2 GM/HR 50 mls/hr IV DIRECT KAYLEE Rx#:[id number] Oral 1280 600 Output: Urine 900 1000 Indwelling Catheter 900 1000 Other: Total, Intake Amount 800 600 Total, Output Amount 250 1000 # Voids Void 0 - Labs Labs: Abnormal lab results 02/07/22 02/08/22 02/08/22 Range/Units 18:18 00:21 05:59 Magnesium 6.10 H 6.70 H 7.00 H (1.7-2.3) mg/dL
[2022-02-08] MEDS ORDERED: diphenhydrAMINE 25 MG CAP PO PRN (09:00)
[2022-02-08] MEDS ORDERED: METOCLOPRAMIDE 10 MG TAB PO PRN (09:00)
[2022-02-08] MEDS: SERTRALINE 25 MG TAB PO SCH (10:24)
[2022-02-08] MEDS: PRENATAL VIT27-FE FUMARATE-FOLIC ACID VIT TAB PO SCH (10:25)
[2022-02-08] MEDS: ENOXAPARIN 40 MG/0.4 ML INJ SUB-Q SCH (20:02)
--- NOTE | 2022-02-09 09:05 | Discharge Summary ---
Providers - Providers Date of Admission: 02/07/22 03:24 Date of discharge: 02/09/22 (desires d/c home ) Attending physician: LUISITO VASQUEZ Primary care physician: KAYLA RICO Hospitalization Reason for admission: b/p control Condition: Good Disposition: 01 HOME / SELF CARE / HOMELESS Final Discharge Diagnosis (Prints w/discharge instructions): , hypertension Time spent for discharge: 20 - Discharge Diagnoses (1) History of pulmonary embolus (PE) Status: Acute (2) Tension type headache Status: Resolved Qualifiers: Headache chronicity pattern: acute headache Intractability: not intractable Qualified Code(s): G44.209 - Tension-type headache, unspecified, not intractable (3) Uncontrolled stage 2 hypertension Status: Acute Core Measure Documentation - Palliative Care Palliative Care/ Comfort Measures: Not Applicable - Core Measures Any of the following diagnoses?: history only Exam - Constitutional Vitals: Temp Pulse Resp BP Pulse Ox 98.2 F 70 18 110/64 99 02/09/22 06:20 02/09/22 06:20 02/09/22 06:20 02/09/22 06:20 02/09/22 08:00 General appearance: Present: no acute distress, well-nourished - EENT Eyes: Present: PERRL ENT: hearing intact, clear oral mucosa - Neck Neck: Present: supple, normal ROM - Respiratory Respiratory effort: normal Respiratory: bilateral: CTA - Cardiovascular Rhythm: regular Heart Sounds: Absent: rub, click - Extremities Extremities: No edema Peripheral Pulses: within normal limits - Abdominal General gastrointestinal: Present: soft, non-tender, non-distended, normal bowel sounds Female genitourinary: Present: normal - Integumentary Integumentary: Present: clear, warm, dry - Musculoskeletal Musculoskeletal: gait normal, strength equal bilaterally - Psychiatric Psychiatric: appropriate mood/affect, intact judgment & insight - Neurologic Neurologic: CNII-XII intact, moves all extremities - Additional findings Additional findings: DOMINGUEZ resolved, b/p well controlled on labetalol 200mg PO BID Plan Activity: advance as tolerated Diet: low salt Follow up with: KAYLA RICO MD [Primary Care Provider] - 3-5 Days RISA WILLOUGHBY MD [Staff Physician] - 7 Days (Please call office to schedule b/p check in 1 week.) Prescriptions: Enoxaparin 40 mg SQ QDAY #30 syringe labetaloL [Labetalol 200mg TAB] 200 mg PO BID #60 tab
[2022-02-09 09:07] VITALS: BP 134/87
[2022-02-09] MEDS: PRENATAL VIT27-FE FUMARATE-FOLIC ACID VIT TAB PO SCH (09:29)
== END 2022-02-09 11:18 | disposition home or self-care (01) | DRG 776 ==
LOC: ED 18:27 → LD 02-07 03:24 → OB 02-08 13:19
PROVIDERS: ADMIT Obstetrics & Gynecology; ATTEND Obstetrics & Gynecology
DX: O14.95 Unspecified pre-eclampsia, complicating the puerperium (principal); Z20.822 Contact with and (suspected) exposure to COVID-19; Z86.711 Personal history of pulmonary embolism; Z91.012 Allergy to eggs; Z91.011 Allergy to milk products; Z91.018 Allergy to other foods; G44.209 Tension-type headache, unspecified, not intractable
CPT/HCPCS: 36415; 80053; 81001; 83735; 85007; 85025; G0378; J1650; J3475; J7120; U0003